=== PATIENT | female | born 1955 | race Caucasian/White ===

== ENCOUNTER 2018-01-13 07:27 | Inpatient (IN) | payer OTHER ==
[2018-01-13] MEDS: ONDANSETRON 4 MG INJ IV ×2 (08:34→09:00)
[2018-01-13] MEDS: morphine 4 MG/ML VIAL IV (08:34)
[2018-01-13] MEDS: SOD CHLORIDE 0.9% 1,000 ML IV ×3 (08:35→18:05)
[2018-01-13 08:40] LABS: ADD MAN DIFF? NO
[2018-01-13 08:41] LABS: BASOPHIL # 0.1 10^3/ul (0.0-0.1); BASOPHILS % 0.4 % (0.0-2.0); EOSINOPHILS # 0.2 10^3/ul (0.0-0.5); EOSINOPHILS % 0.9 % (0.0-7.0); HEMATOCRIT 35.9 % (37.0-47.0); HEMOGLOBIN 11.5 g/dl (12.0-16.0); LYMPHOCYTES # 2.1 10^3/ul (0.8-2.9); LYMPHOCYTES % 12.6 % (15.0-51.0); MEAN CORPUSCULAR HEMOGLOBIN 32.5 pg (29.0-33.0); MEAN CORPUSCULAR VOLUME 101.4 fl (82.0-101.0); MEAN PLATELET VOLUME 12.6 fl (7.4-10.4); MONOCYTE # 1.1 10^3/ul (0.3-0.9); MONOCYTES % 6.3 % (0.0-11.0); NEUTROPHIL # 13.1 10^3/ul (1.6-7.5); PLATELET COUNT 138 10^3/UL (140-415); RED BLOOD COUNT 3.54 10^6/ul (4.20-5.40); RED CELL DISTRIBUTION WIDTH 13.3 % (11.5-14.5)
[2018-01-13 08:41] LABS: WHITE BLOOD COUNT 16.5 10^3/ul (4.8-10.8)
[2018-01-13] MEDS: SOD CHLORIDE 0.9% 250 ML IV (08:46)
[2018-01-13 09:00] LABS: ALANINE AMINOTRANSFERASE 41 IU/L (13-69); ALBUMIN 3.4 g/dl (3.3-4.9); ALKALINE PHOSPHATASE 112 IU/L (42-121); ANION GAP 13 (5-13); ASPARTATE AMINO TRANSFERASE 56 IU/L (15-46); BILIRUBIN,INDIRECT 1.5 mg/dl (0-1.1); BILIRUBIN,TOTAL 1.5 mg/dl (0.2-1.3); BLOOD UREA NITROGEN 42 mg/dl (7-20); CALCIUM 9.7 mg/dl (8.4-10.2); CARBON DIOXIDE 22 mmol/L (21-31); CHLORIDE 105 mmol/L (97-110); CREATININE 0.69 mg/dl (0.44-1.00); Estimated GFR > 60 mL/min (>60); GLUCOSE 192 mg/dl (70-220); LIPASE 82 U/L (23-300); SODIUM 140 mmol/L (135-144); TOTAL PROTEIN 7.6 g/dl (6.1-8.1)
[2018-01-13 09:01] LABS: INR 1.23; PROTIME 15.7 Sec (11.9-14.9); PT RATIO 1.2
[2018-01-13 09:02] LABS: PARTIAL THROMBOPLASTIN TIME 34.4 Sec (23.0-35.0)
[2018-01-13 09:11] LABS: TROPONIN-I 0.052 ng/ml (0.000-0.120)
[2018-01-13 09:21] LABS: LACTIC ACID 9.1 mmol/L (0.5-2.0)
[2018-01-13 09:36] LABS: IMMEDIATE SPIN CROSSMATCH 1 2
[2018-01-13] MEDS: NA BICARBONATE 8.4% 50 ML SYG IV (09:36)
[2018-01-13] MEDS ORDERED: ACETAMINOPHEN 325 MG TAB PO (10:00)
[2018-01-13] MEDS ORDERED: ONDANSETRON 4 MG INJ IV ×2 (10:00→12:00)
[2018-01-13] MEDS ORDERED: SODIUM BICARBONATE (IV ADD) 50 ML (10:25)
[2018-01-13] MEDS: INSULIN ASPART [NOVOLOG] 3 ML PEN SC ×4 (11:50→21:05)
[2018-01-13] MEDS ORDERED: PANTOPRAZOLE IV 80 MG in SOD CHLORIDE 0.9% 100 ML IV (12:00)
[2018-01-13] MEDS ORDERED: DEXTROSE 50% 50 ML SYRINGE IV ×2 (12:00)
[2018-01-13] MEDS ORDERED: GLUCOSE GEL 15 GRAM TUBE PO ×2 (12:00)
[2018-01-13] MEDS ORDERED: NACL 0.9% 3 ML SYG IV (12:00)
[2018-01-13] MEDS ORDERED: GLUCAGON 1 MG INJ IM (12:00)
[2018-01-13] MEDS ORDERED: morphine 2 MG INJ IV (12:00)
[2018-01-13] MEDS ORDERED: GLUCOSE GEL 15 GRAM TUBE BUCCAL (12:00)
[2018-01-13] MEDS: LEVETIRACETAM 500 MG (PMX) 100 ML IVPB ×2 (13:06→21:05)
[2018-01-13] MEDS: MEROPENEM 1 GM/50ML(PMX) 50 ML IVPB ×2 (13:09→21:05)
[2018-01-13 13:39] LABS: HEMATOCRIT 32.8 % (37.0-47.0); HEMOGLOBIN 10.5 g/dl (12.0-16.0)
[2018-01-13] MEDS: OCTREOTIDE 1 MG in DEXTROSE 5% 95 ML IV (13:45)
[2018-01-13] MEDS: PANTOPRAZOLE IV 80 MG in SOD CHLORIDE 0.9% 100 ML IVPB (13:45)
[2018-01-13] MEDS: PANTOPRAZOLE IV 80 MG in SOD CHLORIDE 0.9% 100 ML IV ×2 (13:51→23:52)
[2018-01-13 19:18] LABS: HEMOGLOBIN 10.3 g/dl (12.0-16.0)
[2018-01-13] MEDS: INSULIN GLARGINE [LANTus] (100 UNITS/ML) SYG SC (21:06)
[2018-01-14 00:47] LABS: HEMATOCRIT 29.6 % (37.0-47.0); HEMOGLOBIN 9.9 g/dl (12.0-16.0)
[2018-01-14] MEDS: SOD CHLORIDE 0.9% 1,000 ML IV ×4 (00:51→20:41)
[2018-01-14] MEDS: ACCU-CHEK XX (02:00)
[2018-01-14] MEDS: LEVOTHYROXINE 100 MCG VIAL IV (05:47)
[2018-01-14 06:58] LABS: ADD MAN DIFF? NO
[2018-01-14 07:07] LABS: WHITE BLOOD COUNT 13.1 10^3/ul (4.8-10.8)
[2018-01-14 07:07] LABS: BASOPHILS % 0.3 % (0.0-2.0); EOSINOPHILS # 0.2 10^3/ul (0.0-0.5); EOSINOPHILS % 1.8 % (0.0-7.0); HEMATOCRIT 29.6 % (37.0-47.0); HEMOGLOBIN 9.6 g/dl (12.0-16.0); LYMPHOCYTES # 3.2 10^3/ul (0.8-2.9); LYMPHOCYTES % 24.6 % (15.0-51.0); MEAN CORPUSCULAR HEMOGLOBIN 32.4 pg (29.0-33.0); MEAN CORPUSCULAR HGB CONC 32.4 g/dl (32.0-37.0); MONOCYTE # 0.8 10^3/ul (0.3-0.9); MONOCYTES % 6.4 % (0.0-11.0); NEUTROPHIL # 8.7 10^3/ul (1.6-7.5); NEUTROPHILS % 66.5 % (39.0-77.0); PLATELET COUNT 110 10^3/UL (140-415); RED BLOOD COUNT 2.96 10^6/ul (4.20-5.40); RED CELL DISTRIBUTION WIDTH 14.7 % (11.5-14.5)
[2018-01-14 07:15] LABS: HEMOGLOBIN A1C 7.3 % (0-5.9)
[2018-01-14] MEDS: OCTREOTIDE 1 MG in DEXTROSE 5% 95 ML IV (07:20)
[2018-01-14] MEDS: ACETAMINOPHEN 325 MG TAB PO (07:25)
[2018-01-14] MEDS: INSULIN ASPART [NOVOLOG] 3 ML PEN SC ×7 (07:43→21:39)
[2018-01-14 07:44] LABS: ANION GAP 7 (5-13); BLOOD UREA NITROGEN 41 mg/dl (7-20); CALCIUM 8.1 mg/dl (8.4-10.2); CARBON DIOXIDE 26 mmol/L (21-31); CHLORIDE 108 mmol/L (97-110); Estimated GFR > 60 mL/min (>60); GLUCOSE 196 mg/dl (70-220); POTASSIUM 4.5 mmol/L (3.5-5.1); SODIUM 141 mmol/L (135-144)
[2018-01-14 07:45] LABS: ALANINE AMINOTRANSFERASE 46 IU/L (13-69); ALBUMIN 2.7 g/dl (3.3-4.9); ALKALINE PHOSPHATASE 85 IU/L (42-121); ASPARTATE AMINO TRANSFERASE 50 IU/L (15-46); BILIRUBIN,INDIRECT 1.1 mg/dl (0-1.1); BILIRUBIN,TOTAL 1.1 mg/dl (0.2-1.3); MAGNESIUM 1.5 mg/dl (1.7-2.5); TOTAL PROTEIN 5.7 g/dl (6.1-8.1)
[2018-01-14 07:47] LABS: LACTIC ACID 1.8 mmol/L (0.5-2.0)
[2018-01-14] MEDS: PANTOPRAZOLE IV 80 MG in SOD CHLORIDE 0.9% 100 ML IV ×3 (08:30→22:45)
[2018-01-14] MEDS: LEVETIRACETAM 500 MG (PMX) 100 ML IVPB ×2 (08:58→20:40)
[2018-01-14] MEDS: MEROPENEM 1 GM/50ML(PMX) 50 ML IVPB ×2 (09:01→20:41)
[2018-01-14] MEDS: MAGNESIUM SULFATE 2 GM/50 ML 50 ML IVPB (09:01)
[2018-01-14] MEDS: LIDOCAINE 1% (MPF) 5 ML VIAL SC (10:00)
[2018-01-14 13:32] LABS: HEMATOCRIT 26.6 % (37.0-47.0); HEMOGLOBIN 8.7 g/dl (12.0-16.0)
[2018-01-14 19:20] LABS: HEMATOCRIT 27.2 % (37.0-47.0); HEMOGLOBIN 8.8 g/dl (12.0-16.0)
[2018-01-14] MEDS: INSULIN GLARGINE [LANTus] (100 UNITS/ML) SYG SC (21:59)
[2018-01-15 00:43] LABS: HEMATOCRIT 25.9 % (37.0-47.0); HEMOGLOBIN 8.5 g/dl (12.0-16.0)
[2018-01-15] MEDS: ACCU-CHEK XX (02:25)
[2018-01-15] MEDS: SOD CHLORIDE 0.9% 1,000 ML IV ×3 (03:31→17:43)
[2018-01-15] MEDS: OCTREOTIDE 1 MG in DEXTROSE 5% 95 ML IV (04:30)
[2018-01-15] MEDS: LEVOTHYROXINE 100 MCG VIAL IV (05:37)
[2018-01-15 06:11] LABS: ADD MAN DIFF? NO
[2018-01-15 06:12] LABS: ABNORMAL IP MESSAGE 1; BASOPHILS % 0.2 % (0.0-2.0); EOSINOPHILS # 0.4 10^3/ul (0.0-0.5); EOSINOPHILS % 5.9 % (0.0-7.0); HEMATOCRIT 26.9 % (37.0-47.0); HEMOGLOBIN 8.8 g/dl (12.0-16.0); LYMPHOCYTES # 1.6 10^3/ul (0.8-2.9); LYMPHOCYTES % 26.2 % (15.0-51.0); MEAN CORPUSCULAR HGB CONC 32.7 g/dl (32.0-37.0); MEAN CORPUSCULAR VOLUME 100.7 fl (82.0-101.0); MEAN PLATELET VOLUME 11.9 fl (7.4-10.4); MONOCYTE # 0.5 10^3/ul (0.3-0.9); MONOCYTES % 7.2 % (0.0-11.0); NEUTROPHIL # 3.8 10^3/ul (1.6-7.5); NEUTROPHILS % 60.3 % (39.0-77.0); PLATELET COUNT 86 10^3/UL (140-415); RED BLOOD COUNT 2.67 10^6/ul (4.20-5.40); RED CELL DISTRIBUTION WIDTH 14.6 % (11.5-14.5)
[2018-01-15 06:12] LABS: WHITE BLOOD COUNT 6.3 10^3/ul (4.8-10.8)
[2018-01-15 06:20] LABS: POSITIVE DIFF @See below
[2018-01-15 06:41] LABS: ANION GAP 4 (5-13); BLOOD UREA NITROGEN 15 mg/dl (7-20); CALCIUM 7.6 mg/dl (8.4-10.2); CARBON DIOXIDE 27 mmol/L (21-31); CHLORIDE 109 mmol/L (97-110); Estimated GFR > 60 mL/min (>60); GLUCOSE 158 mg/dl (70-220); MAGNESIUM 1.7 mg/dl (1.7-2.5); POTASSIUM 4.1 mmol/L (3.5-5.1); SODIUM 140 mmol/L (135-144)
[2018-01-15] MEDS: INSULIN ASPART [NOVOLOG] 3 ML PEN SC ×7 (07:55→21:00)
[2018-01-15] MEDS: MEROPENEM 1 GM/50ML(PMX) 50 ML IVPB ×2 (08:25→21:35)
[2018-01-15] MEDS: LEVETIRACETAM 500 MG (PMX) 100 ML IVPB ×2 (08:26→21:35)
[2018-01-15 13:21] LABS: ADD UMIC YES; UR ASCORBIC ACID NEGATIVE (NEGATIVE); UR BACTERIA MODERATE /HPF (NONE SEEN); UR BILIRUBIN (Dip) NEGATIVE (NEGATIVE); UR BLOOD (Dip) 2+ mg/dL (NEGATIVE); UR CLARITY CLOUDY (CLEAR); UR COLOR YELLOW (YELLOW); UR GLUCOSE (Dip) NEGATIVE (NEGATIVE); UR KETONES (Dip) NEGATIVE (NEGATIVE); UR LEUKOCYTE ESTERASE (Dip) 3+ Leu/ul (NEGATIVE); UR MUCUS FEW /HPF (NONE SEEN); UR NITRITE (Dip) NEGATIVE (NEGATIVE); UR RBC 138 /HPF (0-5); UR RENAL EPITHELIAL CELL FEW /HPF (NONE SEEN); UR SPECIFIC GRAVITY (Dip) 1.018 (1.003-1.030); UR SQUAMOUS EPITHELIAL CELL MANY /HPF (FEW); UR TOTAL PROTEIN (Dip) 1+ mg/dl (NEGATIVE); UR UROBILINOGEN (Dip) 2+ mg/dL (NEGATIVE); UR WBC > 182 /HPF (0-5)
[2018-01-15] MEDS: PROPOFOL 20 ML (16:15)
[2018-01-15] MEDS: OCTREOTIDE 500 MCG in DEXTROSE 5% 49 ML IV (21:34)
[2018-01-15] MEDS: PROPRANOLOL 10 MG TAB PO (21:36)
[2018-01-15] MEDS: INSULIN GLARGINE [LANTus] (100 UNITS/ML) SYG SC (21:59)
[2018-01-16] MEDS: SOD CHLORIDE 0.9% 1,000 ML IV ×3 (00:19→12:29)
[2018-01-16] MEDS: ACCU-CHEK XX (02:00)
[2018-01-16] MEDS: LEVOTHYROXINE 100 MCG VIAL IV (05:52)
[2018-01-16] MEDS: INSULIN ASPART [NOVOLOG] 3 ML PEN SC ×7 (07:25→20:44)
[2018-01-16] MEDS: MEROPENEM 1 GM/50ML(PMX) 50 ML IVPB ×2 (08:25→20:44)
[2018-01-16] MEDS: LEVETIRACETAM 500 MG (PMX) 100 ML IVPB (08:25)
[2018-01-16] MEDS: PROPRANOLOL 10 MG TAB PO ×2 (08:26→20:44)
[2018-01-16 09:06] LABS: ADD MAN DIFF? NO
[2018-01-16 09:18] LABS: BASOPHILS % 0.5 % (0.0-2.0); EOSINOPHILS # 0.5 10^3/ul (0.0-0.5); EOSINOPHILS % 7.7 % (0.0-7.0); HEMOGLOBIN 10.1 g/dl (12.0-16.0); LYMPHOCYTES # 1.9 10^3/ul (0.8-2.9); LYMPHOCYTES % 30.5 % (15.0-51.0); MEAN CORPUSCULAR HGB CONC 32.6 g/dl (32.0-37.0); MEAN CORPUSCULAR VOLUME 101.3 fl (82.0-101.0); MEAN PLATELET VOLUME 11.8 fl (7.4-10.4); MONOCYTE # 0.6 10^3/ul (0.3-0.9); MONOCYTES % 8.9 % (0.0-11.0); NEUTROPHIL # 3.3 10^3/ul (1.6-7.5); PLATELET COUNT 108 10^3/UL (140-415); RED BLOOD COUNT 3.06 10^6/ul (4.20-5.40); RED CELL DISTRIBUTION WIDTH 14.6 % (11.5-14.5)
[2018-01-16 09:18] LABS: WHITE BLOOD COUNT 6.4 10^3/ul (4.8-10.8)
[2018-01-16 09:54] LABS: ALBUMIN 2.8 g/dl (3.3-4.9); ANION GAP 7 (5-13); BLOOD UREA NITROGEN 8 mg/dl (7-20); CALCIUM 7.7 mg/dl (8.4-10.2); CARBON DIOXIDE 26 mmol/L (21-31); CHLORIDE 108 mmol/L (97-110); CREATININE 0.42 mg/dl (0.44-1.00); GLUCOSE 102 mg/dl (70-220); MAGNESIUM 1.6 mg/dl (1.7-2.5); PHOSPHORUS 3.5 mg/dl (2.5-4.9); POTASSIUM 4.1 mmol/L (3.5-5.1); SODIUM 141 mmol/L (135-144)
[2018-01-16] MEDS: MAGNESIUM OXIDE 400 MG TAB PO (12:21)
[2018-01-16] MEDS: BENAZEPRIL 40 MG TAB PO (16:09)
[2018-01-16] MEDS: FUROSEMIDE 20 MG TAB PO (16:09)
[2018-01-16] MEDS: HYDROCODONE/APAP (5/325) TAB PO (16:09)
[2018-01-16] MEDS: LEVETIRACETAM 500 MG TAB PO (20:43)
[2018-01-16] MEDS: GABAPENTIN 300 MG CAP PO (20:43)
[2018-01-16] MEDS: FERROUS SULFATE (EC) 325 MG TAB PO (20:43)
[2018-01-16] MEDS: ATORVASTATIN 10 MG TAB PO (20:44)
[2018-01-16] MEDS: INSULIN GLARGINE [LANTus] (100 UNITS/ML) SYG SC (20:54)
[2018-01-16] MEDS ORDERED: NON-FORMULARY/PATIENT OWN MED (Simvastatin* (Zocor*) 20 MG) PO (21:00)
[2018-01-17] MEDS: ACCU-CHEK XX (02:29)
[2018-01-17] MEDS: LEVOTHYROXINE 50 MCG TAB PO (06:16)
[2018-01-17] MEDS: INSULIN ASPART [NOVOLOG] 3 ML PEN SC ×7 (07:25→21:00)
[2018-01-17 07:29] LABS: ADD MAN DIFF? NO
[2018-01-17 07:35] LABS: BASOPHILS % 0.3 % (0.0-2.0); EOSINOPHILS # 0.4 10^3/ul (0.0-0.5); EOSINOPHILS % 6.2 % (0.0-7.0); LYMPHOCYTES # 1.9 10^3/ul (0.8-2.9); LYMPHOCYTES % 32.6 % (15.0-51.0); MEAN CORPUSCULAR HEMOGLOBIN 32.5 pg (29.0-33.0); MEAN CORPUSCULAR HGB CONC 32.1 g/dl (32.0-37.0); MEAN CORPUSCULAR VOLUME 101.1 fl (82.0-101.0); MONOCYTE # 0.5 10^3/ul (0.3-0.9); MONOCYTES % 8.7 % (0.0-11.0); NEUTROPHIL # 3.1 10^3/ul (1.6-7.5); PLATELET COUNT 107 10^3/UL (140-415); RED BLOOD COUNT 2.77 10^6/ul (4.20-5.40); RED CELL DISTRIBUTION WIDTH 14.6 % (11.5-14.5)
[2018-01-17 08:05] LABS: ALBUMIN 2.5 g/dl (3.3-4.9); ANION GAP 3 (5-13); BLOOD UREA NITROGEN 13 mg/dl (7-20); CALCIUM 7.6 mg/dl (8.4-10.2); CARBON DIOXIDE 26 mmol/L (21-31); CHLORIDE 110 mmol/L (97-110); CREATININE 0.42 mg/dl (0.44-1.00); GLUCOSE 135 mg/dl (70-220); MAGNESIUM 1.7 mg/dl (1.7-2.5); POTASSIUM 4.1 mmol/L (3.5-5.1); SODIUM 139 mmol/L (135-144)
[2018-01-17] MEDS: PROPRANOLOL 10 MG TAB PO ×2 (08:07→20:20)
[2018-01-17] MEDS: LEVETIRACETAM 500 MG TAB PO ×2 (08:07→20:10)
[2018-01-17] MEDS: BENAZEPRIL 40 MG TAB PO (08:07)
[2018-01-17] MEDS: GABAPENTIN 300 MG CAP PO ×3 (08:08→20:10)
[2018-01-17] MEDS: FERROUS SULFATE (EC) 325 MG TAB PO ×2 (08:08→20:10)
[2018-01-17] MEDS: FUROSEMIDE 20 MG TAB PO (08:08)
[2018-01-17] MEDS: MEROPENEM 1 GM/50ML(PMX) 50 ML IVPB ×2 (08:12→20:10)
[2018-01-17] MEDS ORDERED: DOCUSATE SODIUM 100 MG CAP PO (11:30)
[2018-01-17] MEDS: POLYETHYLENE GLYCOL 17 GM PACKET PO (12:47)
[2018-01-17] MEDS: PHENAZOPYRIDINE 100 MG TAB PO ×2 (12:47→20:10)
[2018-01-17] MEDS: FLUCONAZOLE 100 MG/50 ML (PMX) 50 ML IVPB (16:54)
[2018-01-17] MEDS: ATORVASTATIN 10 MG TAB PO (20:10)
[2018-01-17] MEDS: INSULIN GLARGINE [LANTus] (100 UNITS/ML) SYG SC (21:07)
[2018-01-18] MEDS: ACCU-CHEK XX (02:00)
[2018-01-18] MEDS: LEVOTHYROXINE 50 MCG TAB PO (06:08)
[2018-01-18] MEDS: PANTOPRAZOLE (EC) 40 MG TAB PO (06:08)
[2018-01-18 07:21] LABS: ADD MAN DIFF? NO
[2018-01-18] MEDS: INSULIN ASPART [NOVOLOG] 3 ML PEN SC ×4 (07:25→12:20)
[2018-01-18 07:27] LABS: WHITE BLOOD COUNT 5.3 10^3/ul (4.8-10.8)
[2018-01-18 07:27] LABS: BASOPHILS % 0.6 % (0.0-2.0); EOSINOPHILS # 0.3 10^3/ul (0.0-0.5); EOSINOPHILS % 6.4 % (0.0-7.0); HEMATOCRIT 27.8 % (37.0-47.0); HEMOGLOBIN 8.8 g/dl (12.0-16.0); LYMPHOCYTES # 2.1 10^3/ul (0.8-2.9); LYMPHOCYTES % 39.5 % (15.0-51.0); MEAN CORPUSCULAR HEMOGLOBIN 31.8 pg (29.0-33.0); MEAN CORPUSCULAR HGB CONC 31.7 g/dl (32.0-37.0); MEAN CORPUSCULAR VOLUME 100.4 fl (82.0-101.0); MEAN PLATELET VOLUME 11.9 fl (7.4-10.4); MONOCYTE # 0.5 10^3/ul (0.3-0.9); MONOCYTES % 10.2 % (0.0-11.0); NEUTROPHIL # 2.3 10^3/ul (1.6-7.5); NEUTROPHILS % 43.1 % (39.0-77.0); PLATELET COUNT 104 10^3/UL (140-415); RED BLOOD COUNT 2.77 10^6/ul (4.20-5.40)
[2018-01-18 07:49] LABS: ALBUMIN 2.6 g/dl (3.3-4.9); ANION GAP 6 (5-13); BLOOD UREA NITROGEN 10 mg/dl (7-20); CALCIUM 7.9 mg/dl (8.4-10.2); CARBON DIOXIDE 28 mmol/L (21-31); CHLORIDE 107 mmol/L (97-110); CREATININE 0.39 mg/dl (0.44-1.00); GLUCOSE 79 mg/dl (70-220); MAGNESIUM 1.6 mg/dl (1.7-2.5); PHOSPHORUS 4.5 mg/dl (2.5-4.9); POTASSIUM 3.9 mmol/L (3.5-5.1); SODIUM 141 mmol/L (135-144)
[2018-01-18] MEDS: POLYETHYLENE GLYCOL 17 GM PACKET PO (08:42)
[2018-01-18] MEDS: PHENAZOPYRIDINE 100 MG TAB PO ×2 (08:42→12:18)
[2018-01-18] MEDS: FERROUS SULFATE (EC) 325 MG TAB PO (08:44)
[2018-01-18] MEDS: LEVETIRACETAM 500 MG TAB PO (08:45)
[2018-01-18] MEDS: GABAPENTIN 300 MG CAP PO ×2 (08:45→12:19)
[2018-01-18] MEDS: FUROSEMIDE 20 MG TAB PO (08:50)
[2018-01-18] MEDS: PROPRANOLOL 10 MG TAB PO (08:59)
[2018-01-18] MEDS: BENAZEPRIL 40 MG TAB PO (09:00)
[2018-01-18] MEDS: MAGNESIUM SULFATE 2 GM/50 ML 50 ML IVPB (10:23)
[2018-01-18] MEDS: DOCUSATE SODIUM 100 MG CAP PO (12:25)
== END 2018-01-18 16:31 | disposition home health service (06) | DRG 871 ==
LOC: E/R 07:27 → TEL 09:47
PROVIDERS: Internal Medicine
PROC: 0DJ08ZZ Inspection of Upper Intestinal Tract, Via Natural or Artificial Opening Endoscopic (ICD-10-PCS; principal; 2018-01-15 14:30)
PROC: 02HV33Z Insertion of Infusion Device into Superior Vena Cava, Percutaneous Approach (ICD-10-PCS; 2018-01-15 14:30)
PROC: B548ZZA Ultrasonography of Superior Vena Cava, Guidance (ICD-10-PCS; 2018-01-15 14:30)
PROC: 30233N1 Transfusion of Nonautologous Red Blood Cells into Peripheral Vein, Percutaneous Approach (ICD-10-PCS; 2018-01-15 14:30)
DX: A41.9 Sepsis, unspecified organism (principal); I85.01 Esophageal varices with bleeding; E87.2 Acidosis; N39.0 Urinary tract infection, site not specified; D62 Acute posthemorrhagic anemia; K92.0 Hematemesis; K92.1 Melena; K76.6 Portal hypertension; R65.20 Severe sepsis without septic shock; I10 Essential (primary) hypertension; E11.9 Type 2 diabetes mellitus without complications; F03.90 Unspecified dementia, unspecified severity, without behavioral disturbance, psychotic disturbance, mood disturbance, and anxiety; M19.90 Unspecified osteoarthritis, unspecified site; G40.909 Epilepsy, unspecified, not intractable, without status epilepticus; K74.60 Unspecified cirrhosis of liver; E87.5 Hyperkalemia; D69.6 Thrombocytopenia, unspecified; E78.5 Hyperlipidemia, unspecified; K31.89 Other diseases of stomach and duodenum; I86.4 Gastric varices; Z79.4 Long term (current) use of insulin
CPT/HCPCS: 36415; 36430; 36569; 70450; 71045; 74176; 76937; 80048; 80053; 80069; 81001; 82962; 83036; 83605; 83690; 83735; 84100; 84132; 84484; 85014; 85018; 85025; 85610; 85730; 86850; 86900; 86901; 86920; 87040; 87086; 93005; 96374; 96375; 99291-25

== ENCOUNTER 2018-04-28 20:30 | Inpatient (IN) | payer OTHER ==
[2018-04-28] MEDS: SODIUM CHLORIDE 0.9% 1L BAG IV* (21:34)
[2018-04-28 22:51] LABS: ADD MAN DIFF? NO
[2018-04-28 22:52] LABS: WHITE BLOOD COUNT 7.6 10^3/ul (4.8-10.8)
[2018-04-28 22:52] LABS: ABNORMAL IP MESSAGE 1; BASOPHILS % 0.5 % (0.0-2.0); EOSINOPHILS % 0.3 % (0.0-7.0); HEMATOCRIT 45.2 % (37.0-47.0); LYMPHOCYTES # 0.8 10^3/ul (0.8-2.9); LYMPHOCYTES % 10.5 % (15.0-51.0); MEAN CORPUSCULAR HEMOGLOBIN 30.6 pg (29.0-33.0); MEAN CORPUSCULAR HGB CONC 33.2 g/dl (32.0-37.0); MEAN CORPUSCULAR VOLUME 92.2 fl (82.0-101.0); MEAN PLATELET VOLUME 11.8 fl (7.4-10.4); MONOCYTE # 0.9 10^3/ul (0.3-0.9); MONOCYTES % 11.5 % (0.0-11.0); NEUTROPHIL # 5.9 10^3/ul (1.6-7.5); NEUTROPHILS % 76.9 % (39.0-77.0); PLATELET COUNT 97 10^3/UL (140-415); RED CELL DISTRIBUTION WIDTH 16.5 % (11.5-14.5)
[2018-04-28 22:55] LABS: POSITIVE DIFF @See below
[2018-04-28 23:08] LABS: ALANINE AMINOTRANSFERASE 41 IU/L (13-69); ALBUMIN/GLOBULIN RATIO 0.75; ALKALINE PHOSPHATASE 162 IU/L (42-121); ANION GAP 9 (5-13); ASPARTATE AMINO TRANSFERASE 71 IU/L (15-46); BILIRUBIN,INDIRECT 1.9 mg/dl (0-1.1); BILIRUBIN,TOTAL 1.9 mg/dl (0.2-1.3); BLOOD UREA NITROGEN 13 mg/dl (7-20); CALCIUM 9.4 mg/dl (8.4-10.2); CARBON DIOXIDE 26 mmol/L (21-31); CHLORIDE 99 mmol/L (97-110); CREATININE 0.58 mg/dl (0.44-1.00); Estimated GFR > 60 mL/min (>60); GLUCOSE 150 mg/dl (70-220); POTASSIUM 4.3 mmol/L (3.5-5.1); SODIUM 134 mmol/L (135-144); TOTAL PROTEIN 9.3 g/dl (6.1-8.1)
[2018-04-28 23:10] LABS: INR 1.14; PROTIME 14.7 Sec (11.9-14.9); PT RATIO 1.1
[2018-04-28 23:11] LABS: PARTIAL THROMBOPLASTIN TIME 34.8 Sec (23.0-35.0)
[2018-04-28 23:19] LABS: TROPONIN-I < 0.012 ng/ml (0.000-0.120)
[2018-04-28] MEDS: OSELTAMIVIR 75 MG CAP PO (23:31)
[2018-04-28] MEDS: LEVOFLOXACIN 750MG/D5W (PMX) 150 ML IVPB (23:32)
[2018-04-29] MEDS: KETOROLAC 15 MG INJ IV (01:28)
[2018-04-29] MEDS: ACETAMINOPHEN 500 MG TAB PO (01:28)
[2018-04-29] MEDS ORDERED: ACETAMINOPHEN 325 MG TAB PO ×2 (01:30→02:30)
[2018-04-29] MEDS ORDERED: ONDANSETRON 4 MG INJ IV ×2 (01:30→02:30)
[2018-04-29] MEDS ORDERED: HYDROCODONE/APAP (5/325) TAB PO (02:30)
[2018-04-29] MEDS ORDERED: NACL 0.9% 3 ML SYG IV (02:30)
[2018-04-29] MEDS ORDERED: DOCUSATE SODIUM 100 MG CAP PO (02:30)
[2018-04-29] MEDS ORDERED: BISACODYL (EC) 5 MG TAB PO (02:30)
[2018-04-29] MEDS ORDERED: GLUCOSE GEL 15 GRAM TUBE BUCCAL (03:00)
[2018-04-29] MEDS ORDERED: DEXTROSE 50% 50 ML SYRINGE IV ×2 (03:00)
[2018-04-29] MEDS ORDERED: GLUCAGON 1 MG INJ IM (03:00)
[2018-04-29] MEDS ORDERED: GLUCOSE GEL 15 GRAM TUBE PO ×2 (03:00)
[2018-04-29 03:11] LABS: ADD UMIC YES; UR ASCORBIC ACID NEGATIVE (NEGATIVE); UR BILIRUBIN (Dip) NEGATIVE (NEGATIVE); UR BLOOD (Dip) NEGATIVE (NEGATIVE); UR CLARITY CLEAR (CLEAR); UR COLOR YELLOW (YELLOW); UR GLUCOSE (Dip) NEGATIVE (NEGATIVE); UR KETONES (Dip) TRACE mg/dL (NEGATIVE); UR LEUKOCYTE ESTERASE (Dip) 2+ Leu/ul (NEGATIVE); UR NITRITE (Dip) NEGATIVE (NEGATIVE); UR RBC 19 /HPF (0-5); UR SPECIFIC GRAVITY (Dip) 1.019 (1.003-1.030); UR TOTAL PROTEIN (Dip) NEGATIVE (NEGATIVE); UR UROBILINOGEN (Dip) 2+ mg/dL (NEGATIVE); UR WBC 40 /HPF (0-5)
[2018-04-29 03:54] LABS: LACTIC ACID 1.7 mmol/L (0.5-2.0)
[2018-04-29 06:02] LABS: ADD MAN DIFF? NO
[2018-04-29 06:05] LABS: WHITE BLOOD COUNT 6.9 10^3/ul (4.8-10.8)
[2018-04-29 06:05] LABS: ABNORMAL IP MESSAGE 1; BASOPHILS % 0.4 % (0.0-2.0); EOSINOPHILS % 0.1 % (0.0-7.0); HEMATOCRIT 38.5 % (37.0-47.0); LYMPHOCYTES # 0.7 10^3/ul (0.8-2.9); LYMPHOCYTES % 10.8 % (15.0-51.0); MEAN CORPUSCULAR HEMOGLOBIN 31.3 pg (29.0-33.0); MEAN CORPUSCULAR HGB CONC 33.8 g/dl (32.0-37.0); MEAN CORPUSCULAR VOLUME 92.8 fl (82.0-101.0); MEAN PLATELET VOLUME 11.8 fl (7.4-10.4); MONOCYTE # 0.8 10^3/ul (0.3-0.9); MONOCYTES % 12.1 % (0.0-11.0); NEUTROPHIL # 5.2 10^3/ul (1.6-7.5); NEUTROPHILS % 76.2 % (39.0-77.0); PLATELET COUNT 83 10^3/UL (140-415); RED BLOOD COUNT 4.15 10^6/ul (4.20-5.40); RED CELL DISTRIBUTION WIDTH 16.6 % (11.5-14.5)
[2018-04-29 06:08] LABS: POSITIVE DIFF @See below
[2018-04-29 06:29] LABS: ALANINE AMINOTRANSFERASE 41 IU/L (13-69); ALBUMIN/GLOBULIN RATIO 0.66; ALKALINE PHOSPHATASE 112 IU/L (42-121); ANION GAP 8 (5-13); ASPARTATE AMINO TRANSFERASE 75 IU/L (15-46); BILIRUBIN,INDIRECT 1.6 mg/dl (0-1.1); BILIRUBIN,TOTAL 1.6 mg/dl (0.2-1.3); BLOOD UREA NITROGEN 14 mg/dl (7-20); CALCIUM 8.2 mg/dl (8.4-10.2); CARBON DIOXIDE 22 mmol/L (21-31); CHLORIDE 103 mmol/L (97-110); CHOL/HDL RATIO 4.2 RATIO; CHOLESTEROL 200 mg/dl (100-200); CREATININE 0.48 mg/dl (0.44-1.00); Estimated GFR > 60 mL/min (>60); GLUCOSE 212 mg/dl (70-220); HDL CHOLESTEROL 47 mg/dl (35-98); LDL CHOLESTEROL,CALCULATED 137 mg/dl; MAGNESIUM 1.1 mg/dl (1.7-2.5); POTASSIUM 4.7 mmol/L (3.5-5.1); SODIUM 133 mmol/L (135-144); TOTAL PROTEIN 7.5 g/dl (6.1-8.1); TRIGLYCERIDES 81 mg/dl (0-149)
[2018-04-29] MEDS: PANTOPRAZOLE (EC) 40 MG TAB PO (06:32)
[2018-04-29] MEDS: LEVOTHYROXINE 50 MCG TAB PO (06:32)
[2018-04-29] MEDS: SOD CHLORIDE 0.9% 1,000 ML IV (06:33)
[2018-04-29 06:38] LABS: HEMOGLOBIN A1C 8.4 % (0-5.9)
[2018-04-29 06:51] LABS: AMMONIA 29 umol/l (9-30)
[2018-04-29] MEDS ORDERED: NON-FORMULARY/PATIENT OWN MED (Omeprazole* 20 MG) PO (07:00)
[2018-04-29 07:02] LABS: LACTIC ACID 2.1 mmol/L (0.5-2.0)
[2018-04-29] MEDS: INSULIN ASPART [NOVOLOG] 3 ML PEN SC ×4 (07:55→21:00)
[2018-04-29] MEDS: BENAZEPRIL 40 MG TAB PO (08:37)
[2018-04-29] MEDS: PROPRANOLOL 10 MG TAB PO ×2 (08:37→20:49)
[2018-04-29] MEDS: LEVETIRACETAM 500 MG TAB PO ×2 (08:37→20:49)
[2018-04-29] MEDS: FERROUS SULFATE (EC) 325 MG TAB PO ×2 (08:37→20:48)
[2018-04-29] MEDS: GABAPENTIN 300 MG CAP PO ×3 (08:37→20:48)
[2018-04-29] MEDS ORDERED: NPH HUMAN INSULIN ISOPHANE SQ (09:00)
[2018-04-29] MEDS: NPH, HUMAN INSULIN ISOPHANE 3ML VIAL SC ×2 (11:13→21:12)
[2018-04-29 11:25] LABS: LACTIC ACID 1.7 mmol/L (0.5-2.0)
[2018-04-29] MEDS: MAGNESIUM SULFATE 2 GM/50 ML 50 ML IVPB (12:13)
[2018-04-29] MEDS: ATORVASTATIN 10 MG TAB PO (20:48)
[2018-04-29] MEDS ORDERED: NON-FORMULARY/PATIENT OWN MED (Simvastatin* (Zocor*) 20 MG) PO (21:00)
[2018-04-29] MEDS: LEVOFLOXACIN 750MG/D5W (PMX) 150 ML IVPB (21:59)
[2018-04-30] MEDS: ACCU-CHEK XX (02:00)
[2018-04-30 06:05] LABS: ADD MAN DIFF? NO
[2018-04-30 06:17] LABS: ABNORMAL IP MESSAGE 1; BASOPHILS % 0.6 % (0.0-2.0); EOSINOPHILS # 0.1 10^3/ul (0.0-0.5); HEMATOCRIT 39.9 % (37.0-47.0); HEMOGLOBIN 13.5 g/dl (12.0-16.0); LYMPHOCYTES # 1.8 10^3/ul (0.8-2.9); LYMPHOCYTES % 36.4 % (15.0-51.0); MEAN CORPUSCULAR HEMOGLOBIN 31.3 pg (29.0-33.0); MEAN CORPUSCULAR HGB CONC 33.8 g/dl (32.0-37.0); MEAN CORPUSCULAR VOLUME 92.4 fl (82.0-101.0); MEAN PLATELET VOLUME 11.7 fl (7.4-10.4); MONOCYTE # 0.7 10^3/ul (0.3-0.9); NEUTROPHIL # 2.3 10^3/ul (1.6-7.5); NEUTROPHILS % 46.6 % (39.0-77.0); RED BLOOD COUNT 4.32 10^6/ul (4.20-5.40); RED CELL DISTRIBUTION WIDTH 16.2 % (11.5-14.5)
[2018-04-30 06:17] LABS: WHITE BLOOD COUNT 4.9 10^3/ul (4.8-10.8)
[2018-04-30] MEDS: PANTOPRAZOLE (EC) 40 MG TAB PO (06:19)
[2018-04-30] MEDS: LEVOTHYROXINE 50 MCG TAB PO (06:19)
[2018-04-30 06:27] LABS: POSITIVE DIFF @See below
[2018-04-30 06:28] LABS: PLATELET COUNT 80 10^3/UL (140-415)
[2018-04-30 06:44] LABS: ALANINE AMINOTRANSFERASE 38 IU/L (13-69); ALBUMIN 2.9 g/dl (3.3-4.9); ALBUMIN/GLOBULIN RATIO 0.63; ALKALINE PHOSPHATASE 116 IU/L (42-121); ANION GAP 9 (5-13); ASPARTATE AMINO TRANSFERASE 91 IU/L (15-46); BILIRUBIN,INDIRECT 0.9 mg/dl (0-1.1); BILIRUBIN,TOTAL 0.9 mg/dl (0.2-1.3); BLOOD UREA NITROGEN 11 mg/dl (7-20); CALCIUM 8.1 mg/dl (8.4-10.2); CARBON DIOXIDE 20 mmol/L (21-31); CHLORIDE 108 mmol/L (97-110); CREATININE 0.48 mg/dl (0.44-1.00); Estimated GFR > 60 mL/min (>60); GLUCOSE 96 mg/dl (70-220); MAGNESIUM 1.6 mg/dl (1.7-2.5); POTASSIUM 4.3 mmol/L (3.5-5.1); SODIUM 137 mmol/L (135-144); TOTAL PROTEIN 7.5 g/dl (6.1-8.1)
[2018-04-30] MEDS: INSULIN ASPART [NOVOLOG] 3 ML PEN SC ×2 (07:54→12:16)
[2018-04-30] MEDS: FERROUS SULFATE (EC) 325 MG TAB PO (08:06)
[2018-04-30] MEDS: BENAZEPRIL 40 MG TAB PO (08:07)
[2018-04-30] MEDS: PROPRANOLOL 10 MG TAB PO (08:07)
[2018-04-30] MEDS: LEVETIRACETAM 500 MG TAB PO (08:07)
[2018-04-30] MEDS: GABAPENTIN 300 MG CAP PO ×2 (08:07→12:07)
[2018-04-30] MEDS: NPH, HUMAN INSULIN ISOPHANE 3ML VIAL SC (08:08)
[2018-04-30] MEDS: FLUCONAZOLE 100 MG TAB PO (12:07)
[2018-04-30] MEDS: MAGNESIUM SULFATE 1 GM/D5W 100 ML IVPB (14:15)
== END 2018-04-30 18:12 | disposition home or self-care (01) | DRG 872 ==
LOC: E/R 20:30 → TEL 04-29 01:24
DX: A41.9 Sepsis, unspecified organism (principal); B37.49 Other urogenital candidiasis; D68.4 Acquired coagulation factor deficiency; K76.6 Portal hypertension; R65.20 Severe sepsis without septic shock; J06.9 Acute upper respiratory infection, unspecified; E78.5 Hyperlipidemia, unspecified; E03.9 Hypothyroidism, unspecified; K21.9 Gastro-esophageal reflux disease without esophagitis; I10 Essential (primary) hypertension; J45.909 Unspecified asthma, uncomplicated; E11.40 Type 2 diabetes mellitus with diabetic neuropathy, unspecified; K74.60 Unspecified cirrhosis of liver; G40.909 Epilepsy, unspecified, not intractable, without status epilepticus; Z86.73 Personal history of transient ischemic attack (TIA), and cerebral infarction without residual deficits; F03.90 Unspecified dementia, unspecified severity, without behavioral disturbance, psychotic disturbance, mood disturbance, and anxiety; E66.01 Morbid (severe) obesity due to excess calories; Z68.33 Body mass index [BMI] 33.0-33.9, adult; Z79.4 Long term (current) use of insulin; Z88.0 Allergy status to penicillin
CPT/HCPCS: 36415; 71045; 80053; 80061; 81001; 82140; 82962; 83036; 83605; 83735; 84443; 84484; 85025; 85610; 85730; 87040; 87086; 87400; 93005; 96365; 99291-25